=== PATIENT | male | born 1985 | race Caucasian/White ===

== ENCOUNTER 2017-01-29 20:10 | Emergency (ER) | payer SELFPAY ==
[2017-01-29 20:15] VITALS: BP 128/76; BMI 19.9
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
[2017-01-29] MEDS ORDERED: KEFLEX CAP 500 MG PO ONE ×2 (20:40→20:42)
[2017-01-29] MEDS ORDERED: ULTRAM PO ONE (20:40)
[2017-01-29] MEDS ORDERED: ULTRAM ONE (20:42)
== END 2017-01-29 21:00 | disposition home or self-care (01) ==
LOC: ER 20:19
PROC: 0XQK0ZZ Repair Left Hand, Open Approach (ICD-10-PCS; principal; 2017-01-29)
DX: S61.402A Unspecified open wound of left hand, initial encounter (principal); W45.8XXA Other foreign body or object entering through skin, initial encounter; Y92.019 Unspecified place in single-family (private) house as the place of occurrence of the external cause
CPT/HCPCS: 99282

== ENCOUNTER 2017-03-06 15:23 | Emergency (ER) | payer SELFPAY ==
[2017-03-06 15:34] VITALS: BP 122/72; BMI 18.0
--- NOTE | 2017-03-06 16:00 | DR.N/VMALE ---
HPI - Time Seen Time seen: 16:00 - Primary Care Physician Primary Care Physician: NFD - Complaints Chief Complaint Doctors Comments: Patient states that he has had migraine since 16 years of age. Thie frontal migrain he has had for four days. He has no physician use to see a neurologist when living in [place]. He denies vomiting. Headache is throbbing, frontal, made better with sleep. Chief Complaint:: PT C/O MIGRAINE THAT STARTED THIS AM AND HE USE TO HAVE MEDS TO TAKE FOR THEM AND HE HAS NOT HAD ANY IN A WHILE... Self Treatment fo Chief Complaint: OTC MEDS - Source History Provided: Patient - Mode of Arrival Mode of Arrival: Ambulatory - Timing Onset of Chief Complaint: 03/06/17 PMH - PMH Past Medical History: No Past Surgical History: Yes Surgical History: Ortho Surgery Past Surgical History Comment: LEFT LEG METAL RODE.. - Family History History of Family Medical Conditions: No - Social History Does patient currently use any type of tobacco product: Yes Have you used tobacco products in the last 12 months: Yes Type of Tobacco Use: Smokeless How many years tobacco product used: 5 Does any household member use tobacco: Yes Alcohol Use: Occasionally Do you use any recreational Drugs:: No Lives With: Family Lives Where: Home - infectious screening In the last 2 months have you had wt loss of >10#?: NO Have you had fever, night sweats or hemotysis?: No Have you traveled outside the country in the last 6 months?: No Isolation: Standard ROS - Review of Systems Eyes: No Symptoms Reported, Eye Pain Respiratoy: No Symptoms Reported Cardiovascular: No Symptoms Reported Gastrointestinal/Abdominal: No Symptoms Reported Genitourinary: No Symptoms Reported Neurological: No Symptoms Reported Musculoskeletal: No Symptoms Reported Integumentary: No Symptoms Reported Hematologic/Lymphatic: No Symptoms Reported Endocrine: No Symptoms Reported Psychiatric: No Symptoms Reported All Other Systems: Reviewed and Negative PE - Vital Signs Vitals: Temperature 98.1 F Pulse Rate 82 Respiratory Rate 20 Blood Pressure 122/72 O2 Sat by Pulse Oximetry 94 - General Limitations: No Limitations General Appearance: Alert, In No Apparent Distress - Head Head Exam: Normal Inspection, Atraumatic - Eyes Eye exam: Normal Appearance, PERRL, EOMI - ENT ENT Exam: Normal Exam - Neck Neck Exam: Normal Inspection, Full ROM - Chest Chest Inspection: Normal Inspection - Respiratory Respiratory Exam: Normal Lung Sounds Bilat Respiratory Exam: Bilateral Clear to Auscultation - Cardiovascular Cardiovascular Exam: Regular Rate - Abdominal Exam Abdominal Exam: Normal Inspection Abdominal Tenderness: negative: RUQ, RLQ, LUQ, LLQ, Epigastrium, Suprapubic, Diffuse, Mild, Moderate, Severe, Other - Rectal Rectal Exam: Deferred - Exam: Male: Deferred - Extremities Extremities Exam: Normal Inspection, Full ROM - Back Back Exam: Normal Inspection, Full ROM - Neurologic Neurological Exam: Alert, Oriented X3, CN II-XII Intact - Psychiatric Psychiatric Exam: Normal Affect, Normal Mood Course - Reevaluation 1st: Improved - Diagnosis Discharge Problem: History of migraine headaches - Discharge Plan Condition: Stable - Follow ups/Referrals Follow ups/Referrals: NFD,None [Primary Care Provider] - 3 days - Instructions
[2017-03-06] MEDS ORDERED: DECADRON INJ IV ONE (16:01)
[2017-03-06] MEDS ORDERED: NS 500 ML IV 500 ML IV ONE (16:01)
[2017-03-06] MEDS ORDERED: TORADOL 30 MG VIAL IVP ONE (16:04)
[2017-03-06] MEDS ORDERED: PHENERGAN INJ 25 MG IV ONE (16:04)
[2017-03-06] MEDS ORDERED: TORADOL 30 MG VIAL ONE (16:07)
[2017-03-06] MEDS ORDERED: NS 1000 ML 1,000 ML ONE (16:07)
[2017-03-06] MEDS ORDERED: PHENERGAN INJ 25 MG ONE (16:08)
[2017-03-06] MEDS ORDERED: DECADRON INJ ONE (16:08)
== END 2017-03-06 17:05 | disposition home or self-care (01) ==
LOC: ER 15:35
DX: G43.909 Migraine, unspecified, not intractable, without status migrainosus (principal)
CPT/HCPCS: 96365; 96374; 96375; 99282; 99283; A4222; J1100; J1885; J2550